=== PATIENT | male | born 1995 | race Two or more races ===

== ENCOUNTER 2017-10-05 15:32 | Emergency (ER) | payer OTHER ==
[2017-10-05] MEDS ORDERED: NS 1,000 ML IV ONE ×2 (15:56→17:25)
--- NOTE | 2017-10-05 15:59 | EDPHY ---
HPI/HX/ROS/PE/MDM Narrative: CHIEF COMPLAINT: Cough, lightheaded, low blood pressure, fast heart rate HISTORY OF PRESENT ILLNESS: The patient is a 22 y/o male complaining of a cough, lightheadedness, tachycardia, and hypotension. For the past several weeks he has had a cough. The coughing has made him almost vomit several times. Yesterday he became lightheaded and dizzy with a worsening cough; he was also subjectively febrile. Today he went to [facility], who sent him to the ED for hypotension, tachycardia, and a fever. Denies taking Tylenol or ibuprofen today. Mild body aches and mild headache. No chills, chest pain, palpitations, vomiting, diarrhea, urinary complaints. REVIEW OF SYSTEMS: Aside from elements discussed in the HPI, a comprehensive 10-point review of systems was reviewed and is negative. PAST MEDICAL HISTORY: Exercise induced asthma SOCIAL HISTORY: Student at , lives in [place], nonsmoker VITAL SIGNS: Temperature: 39.5, Heart rate: 140, BP: 116/89, others reviewed by me GENERAL: Well-developed, well-nourished, looks comfortable, better than his heart rate and fever would suggest. No respiratory distress. HEENT: Atraumatic. Eyes: No icterus, mild conjunctival injection. Mouth: moist mucous membranes. Erythematous throat, no swelling, exudates or lesions. Neck: supple with no adenopathy. No meningismus. LUNGS: Clear to auscultation bilaterally, no wheezes, rhonchi or rales. CARDIAC: Tachycardic, no rubs, murmurs or gallops. ABDOMEN: Soft, nontender, nondistended, bowel sounds normal. BACK: No CVA tenderness. EXTREMITIES: No trauma. No edema. Range of motion is normal throughout. NEURO: Alert and oriented, grossly nonfocal. SKIN: Warm and dry, no rash. PSYCHIATRIC: Normal mentation, no agitation. Portions of this note were transcribed by a mobile paramedical examiner. I personally performed a history, physical exam, medical decision making, and confirmed accuracy of information the transcribed note. ED Course: The patient is a 22 y/o male presenting with hypotension, tachycardia, and a fever, onset yesterday. He was seen at [facility], who sent him to the ED for further evaluation and treatment. On exam his throat is erythematic and he has mild conjunctival injection. His temperature at triage was 39.5 degrees and he had a heart rate of 140. Labs and chest x-ray ordered. 650mg PO Tylenol, 600mg PO Motrin, and 1L IV NS administered. 165: Patient has influenza A. His chest x-ray is negative for acute findings. His WBC is normal and he does not meet sepsis criteria. Additional 1L IV NS bolus administered. 1828: Reassessed patient and discussed laboratory and imaging findings. He is feeling better and is still receiving his second liter of fluids. 1928: Reassessed patient after finishing his second liter of fluid. His vital signs are stable to return home. I have prescribed him Tamiflu, his first dose will be given in the ED. Return precautions provided; patient understands the importance of fluids, rest, fever control and to return to the ED if he is worsening. He is comfortable with this plan. MDM: Differential diagnosis for the patient's presenting complaints was considered including but not limited to viral versus bacterial bronchitis, influenza, pneumonia, sepsis. - Data Points Imaging: I viewed and interpreted images myself Laboratory Results: Laboratory Results 10/05/17 15:58 10/05/17 15:58 Medications Given: Discontinued Medications Acetaminophen (Tylenol) 650 mg PO EDNOW ONE Stop: 10/05/17 16:03 Last Admin: 10/05/17 16:17 Dose: 650 mg Sodium Chloride (Ns) 1,000 mls @ 0 mls/hr IV ONCE ONE; Wide Open PRN Reason: Protocol Stop: 10/05/17 15:57 Last Admin: 10/05/17 15:57 Dose: 1,000 mls Sodium Chloride (Ns) 1,000 mls @ 0 mls/hr IV ONCE ONE PRN Reason: Wide Open Stop: 10/05/17 17:26 Last Admin: 10/05/17 17:29 Dose: 1,000 mls Ibuprofen (Motrin) 600 mg PO EDNOW ONE Stop: 10/05/17 16:03 Last Admin: 10/05/17 16:17 Dose: 600 mg Oseltamivir Phosphate (Tamiflu) 75 mg PO EDNOW ONE Stop: 10/05/17 19:30 Last Admin: 10/05/17 19:46 Dose: 75 mg General Time Seen by Provider: 10/05/17 15:47 Initial Vital Signs: Initial Vital Signs Temperature (C) 39.5 C H 10/05/17 15:43 Heart Rate 140 H 10/05/17 15:43 Respiratory Rate 20 10/05/17 15:43 Blood Pressure 116/89 H 10/05/17 15:43 O2 Sat (%) 96 10/05/17 15:43 O2 Delivery Mode Room Air Allergies/Adverse Reactions: No Known Drug Allergies Allergy (Verified 10/05/17 15:47) Home Medications: Medication Instructions Recorded Oseltamivir Phosphate [Tamiflu 75 75 mg PO BID 5 Days cap 10/05/17 mg (*)] Departure - Departure Disposition: Home, Routine, Self-Care Clinical Impression: Influenza A Condition: Good Instructions: Influenza (ED) Additional Instructions: You have influenza A. Please expect to be sick with a cough, body aches, fevers for several days. Most important thing is to drink plenty of fluid, control your symptoms with [id number] medications, and get plenty of rest. Take Tamiflu as prescribed. If you have a fever, use Tylenol or ibuprofen. You may take both at the same time if needed. Adult Pain & Fever Control: We recommend Acetaminophen (Tylenol) and Ibuprofen (Motrin, Advil) for pain and fever control. When fever is high or pain severe, both drugs can be used at the same time, but at different intervals. Please note the time differences. Your dose is: Acetaminophen [650-1000]mg every 4 to 6 hours Ibuprofen [600]mg every [8] hours with food. If you have a runny nose, I recommend an antihistamine. Antihistamines are often sedating. Claritin and Luz are nonsedating antihistamines. If you are congested, take a decongestant. Afrin nasal spray will help a few have significant sinus congestion. Do not use this for more than 3 days in a row. Flonase nasal spray is also helpful for nasal congestion. If you have a sore throat, take Tylenol, or ibuprofen. Throat lozenges, throat sprays, or salt water gargles may also be helpful. Return to emergency department or seek care urgently if you're symptoms are worsening despite the above treatment, if you develop shortness of breath, if you're unable to drink fluids secondary to throat pain or other issues, if you developed, vomiting, diarrhea, or have recurrent episodes of fainting. Return immediately for high fever, severe headache or neck pain, difficulty breathing, abdominal pain, rash or other worsening of condition. Referrals: [facility],. [Clinic] - As per Instructions Prescriptions: Oseltamivir Phosphate [Tamiflu 75 mg (*)] 75 mg PO BID 5 Days cap Report Scribed for: Kimi Villalobos Report Scribed by: Dinah Higgins Date of Report: 10/05/17 Time of Report: 16:12
[2017-10-05] MEDS ORDERED: IBUPROFEN 600 MG TAB PO ONE (16:02)
[2017-10-05] MEDS ORDERED: ACETAMINOPHEN 325 MG TAB PO ONE (16:02)
[2017-10-05 16:06] LABS: PLATELET COUNT 192 10^3/uL (150-400)
[2017-10-05 16:16] LABS: INR 1.16 (0.83-1.16)
[2017-10-05 17:33] VITALS: RESP 18
[2017-10-05 19:15] VITALS: O2SAT 96
[2017-10-05 19:27] VITALS: TEMP 99.3
[2017-10-05] MEDS ORDERED: OSELTAMIVIR PHOSPHATE 75 MG CAP PO ONE (19:29)
[2017-10-05 19:59] VITALS: BP 115/69; PULSE 101
== END 2017-10-05 19:59 | disposition home or self-care (01) ==
DX: J10.1 Influenza due to other identified influenza virus with other respiratory manifestations (principal); E86.9 Volume depletion, unspecified; J45.909 Unspecified asthma, uncomplicated